=== PATIENT | male | born 1975 | race Caucasian/White ===

== ENCOUNTER 2021-01-12 12:31 | Emergency (ER) | payer OTHER, SELFPAY ==
[2021-01-12 12:53] VITALS: BP 150/80; BP 152/76; PULSE 107; PULSE 113; RESP 12; TEMP 36.1; O2SAT 94; O2SAT 98; BMI 35.4
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
[2021-01-12] MEDS: Naloxone HCl Nasal TAKE HOME 4 MG SPRAY NOSTRILALT (13:54)
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
[2021-01-12 14:00] VITALS: BP 150/86; PULSE 90; RESP 16; TEMP 36.6; O2SAT 94
== END 2021-01-12 14:55 | disposition home or self-care (01) ==
PROVIDERS: Emergency Provider Emergency Medicine Emergency Medical Services
DX: F14.10 Cocaine abuse, uncomplicated (principal); F11.10 Opioid abuse, uncomplicated
CPT/HCPCS: 99284